=== PATIENT | male | born 1975 | race American Indian/Alaskan Native ===

== ENCOUNTER 2017-10-21 15:26 | Emergency (ER) | payer OTHER ==
[~2017-10-21] VITALS: Ht 170.2 cm; Wt 137.0 kg
[2017-10-21] MEDS ORDERED: NORCO 5-325 TA1 EACH PO (17:41)
== END 2017-10-21 18:03 | disposition home or self-care (01) ==
LOC: ED 15:26
PROC: 2W23X4Z Dressing of Abdominal Wall using Bandage (ICD-10-PCS; principal; 2017-10-21)
PROC: 2W2FX4Z Dressing of Left Hand using Bandage (ICD-10-PCS; principal; 2017-10-21)
DX: T21.52XA Corrosion of first degree of abdominal wall, initial encounter (principal); T23.402A Corrosion of unspecified degree of left hand, unspecified site, initial encounter; T23.401A Corrosion of unspecified degree of right hand, unspecified site, initial encounter; T32.0 Corrosions involving less than 10% of body surface; Y92.89 Other specified places as the place of occurrence of the external cause
CPT/HCPCS: 16000; 16020; 99282

== ENCOUNTER 2017-10-23 15:16 | Emergency (ER) | payer OTHER ==
[~2017-10-23] VITALS: Ht 170.2 cm; Wt 137.0 kg
[~2017-10-23 15:16] MED LIST: NORCO 5-325 TA1 EACH PO
[2017-10-23] MEDS ORDERED: MEDROL4 MG PO (16:07)
== END 2017-10-23 16:28 | disposition home or self-care (01) ==
LOC: ED 15:16
DX: T78.49XA Other allergy, initial encounter (principal); R60.0 Localized edema
CPT/HCPCS: 99283

== ENCOUNTER 2018-02-23 05:23 | Emergency (ER) | payer OTHER ==
[~2018-02-23] VITALS: Ht 170.2 cm; Wt 137.0 kg
[~2018-02-23 05:23] MED LIST changes: +MEDROL4 MG PO
[2018-02-23] MEDS ORDERED: INDOMETHACIN50 MG PO (05:53)
== END 2018-02-23 06:16 | disposition home or self-care (01) ==
LOC: ED 05:23
DX: M79.672 Pain in left foot (principal); F17.200 Nicotine dependence, unspecified, uncomplicated
CPT/HCPCS: 99283